=== PATIENT | male | born 1990 | race Caucasian/White ===

== ENCOUNTER 2024-11-09 10:42 | Day surgery (SDC) | payer OTHER, MEDICAID, SELFPAY ==
[2024-11-05 13:23] VITALS: BMI 27.1
[2024-11-09] VITALS (8 sets, daily range): BP systolic 107–131; BP diastolic 68–84; PULSE 79–90; RESP 13–26; TEMP 36.2–36.7; O2SAT 95–99; BMI 27.3
[2024-11-09] MEDS: ACETAMINOPHEN 325 MG TABLET 975 MG PO (11:33)
[2024-11-09] MEDS: LACTATED RINGERS 1,000 ML 42 ML IV (11:33)
--- NOTE | 2024-11-09 11:53 | PM.PREOP ---
Pre-operative Note COVID-19 COVID-19 status: Not tested Interval Note History & Physical reviewed/Exam performed by Physician: Yes Changes to H&P: No ASA Class (for procedural sedation): II
[2024-11-09] MEDS: CEFAZOLIN 2 GM/100 ML PREMIX 100 ML IV (12:36)
[2024-11-09] MEDS: BUPIVACAINE 0.5% W/ EPI (PF) 30 ML VIAL INJ (12:48)
--- NOTE | 2024-11-09 12:50 | SUR.OPER ---
Supine on padded OR bed, head on pillow, arms padded and tucked at sides, legs uncrossed, safety belt at thigh, tape over blanket over lower legs .
--- NOTE | 2024-11-09 13:42 | P.OP_ITS ---
Operative Date/Time/Diagnoses Date of procedure: 11/09/24 Time of procedure: 13:42 Pre-op diagnosis: Right inguinal hernia Post-op diagnosis: same Procedure & Clinicians Procedure: Laparoscopic right inguinal hernia repair with mesh Same procedure as scheduled: Yes Surgeon: Salvatore Smith [employer] Operations Manager: Adán Lemons Anesthesia Type: General Operative Notes Procedure in detail: The patient was given preoperative antibiotics. The patient was brought to the operating room, placed on the table in the supine position with the arms tucked and general anesthesia was induced. The abdomen was prepped and draped in the usual fashion. A time-out was performed. A 1 cm supraumbilical incision was created and dissection was carried down to the anterior sheath. The fascia was scored transversely with cautery. The inferior leaf of the fascia was grasped with a Michael clamp to elevate abdominal wall and a Peon clamp was used to pruitt the peritoneum. The Tino port was placed and the abdomen was insufflated to 15 mmHg. The camera was inserted, there was no evidence of any injury from the entry. There was a large right indirect inguinal hernia. 5 mm ports were placed under direct vision in the mid left and mid right abdomen. The patient was positioned in steep Trendelenburg. We created right peritoneal flap. The peritoneum was dissected off the right cord structures. A large right Bard mesh was brought in and placed over the defect with the medial edge against Kuldeep's ligament. We then closed the peritoneal flap with a running 3- 0 barbed suture. We took one last look around the abdomen and saw no other abnormalities. The suture was removed and accounted for. The 5 mm ports were removed under direct vision. The abdomen was desufflated. The Tino port was removed. Additional local was injected into the fascia and the fascial incision was closed with 2 interrupted 0 Vicryl sutures. The skin incisions were closed with 4 Monocryl, Steri-Strips and Band-Aids. EBL: 10 mL Adán VARELA provided assistance with exposure, retraction and closure of incisions. Post-operative Condition: stable Disposition: PACU
--- NOTE | 2024-11-09 14:20 | SUR.PHASEI ---
SEe new order from Alphonse Beard CRNA for toradol.
[2024-11-09] MEDS: KETOROLAC 30 MG/ML VIAL IV (14:26)
[2024-11-09] MEDS: OXYCODONE IR 5 MG TABLET PO (14:34)
== END 2024-11-09 15:00 | disposition home or self-care (01) ==
PROVIDERS: PCP Family Medicine; Referring Provider Surgery; Visit Provider Surgery
PROC: 0YQ54ZZ Repair Right Inguinal Region, Percutaneous Endoscopic Approach (ICD-10-PCS; CPT 49650; principal; 2024-11-09 12:15)
DX: K40.90 Unilateral inguinal hernia, without obstruction or gangrene, not specified as recurrent (principal)
CPT/HCPCS: 49650; J0690; J1885; J2250; J2405; J2704; J3010